=== PATIENT | male | born 1975 | race Hispanic/Latino ===

== ENCOUNTER 2024-07-18 17:53 | Emergency (ER) | payer BC ==
[~2024-07-18] VITALS: Ht 175.3 cm; Wt 94.3 kg
[~2024-07-18 17:53] MED LIST: LISINOPRIL10 MG PO
[2024-07-18 18:00] VITALS: PULSE 72; RESP 16; TEMP 97.9; O2SAT 99
[2024-07-18] MEDS: HYDROCODONE/APAP 5MG-325MG TAB PO ONE (18:50)
[2024-07-18] MEDS: TETANUS/DIPHTHERIA TOX ADULT 0.5 ML SYR IM ONE (18:50)
[2024-07-18] MEDS: AMOXICILLIN/CLAVULANATE K 875 MG TAB PO STA (20:13)
[2024-07-18] MEDS ORDERED: AMOX TR-K CLV1 EAC2 PO (21:14)
[2024-07-18] MEDS ORDERED: HYDROCODON-ACE1 EA11 PO (21:14)
[2024-07-20] MEDS ORDERED: CRANBERRY200 MG PO (10:18)
[2024-07-20] MEDS ORDERED: VITAMIN D31250 MCG PO (10:18)
[2024-07-20] MEDS ORDERED: FISH OIL 1,001000 M1 PO (10:18)
[2024-07-20] MEDS ORDERED: ASPIRIN81 MG PO (10:18)
[2024-07-21] MEDS ORDERED: HYDROCODON-ACE1 EA11 PO (09:47)
== END 2024-07-18 21:32 | disposition home or self-care (01) ==
LOC: ER 17:57
DX: S68.121A Partial traumatic metacarpophalangeal amputation of left index finger, initial encounter (principal); W54.0XXA Bitten by dog, initial encounter; Y92.89 Other specified places as the place of occurrence of the external cause; I10 Essential (primary) hypertension
CPT/HCPCS: 90714; 99284

== ENCOUNTER → 2024-07-21 | Day surgery (SDC) | payer BC ==
[~2024-07-21] MED LIST changes: +ACETAMINOPHEN 1000 MG/100 ML 100 ML IV ONE; +AMOX TR-K CLV1 EAC2 PO; +ASPIRIN81 MG PO; +BUPIVACAINE 0.5%/EPI 30 ML SDV INJ ONE; +BUPIVACAINE HCL 0.5% INJ 30 ML VIAL INJ ONE; +CRANBERRY200 MG PO; +DEXAMETHASONE SOD PHOS INJ 4 MG/ML SDV ONE; +FENTANYL CITRATE/PF 100MCG/2 ML INJ ONE; +FISH OIL 1,001000 M1 PO; +HYDROCODON-ACE1 EA11 PO; +HYOSCYAMINE SULFATE 0.5 MG/ML INJ ONE; +LACTATED RINGER'S 1,000 ML ONE; +LIDOCAINE 2% /EPINEPHRINE 20 ML SDV INJ ONE; +MIDAZOLAM HCL 2 MG/2 ML VIAL ONE; +MUPIROCIN 2% OINT 22 GM TUBE ONE; +ONDANSETRON HCL INJ 2MG/ML 2ML 2 MG/ML VIAL ONE; +PHENYLEPHRINE HCL 1% 10 MG/ML VIAL ONE; +PROPOFOL IV EMULSION 10 MG/ML 20 ML VIAL ONE; +SEVOFLURANE INHAL SOLN 250 ML PEN BTL ONE; +SODIUM CHLORIDE 0.9% 100 ML ONE; +VITAMIN D31250 MCG PO
== END | disposition home or self-care (01) ==
LOC: OR 06:03
PROVIDERS: ATTEND Plastic Surgery
DX: S68.611A Complete traumatic transphalangeal amputation of left index finger, initial encounter (principal); I10 Essential (primary) hypertension; W54.0XXA Bitten by dog, initial encounter; Z01.810 Encounter for preprocedural cardiovascular examination; Z79.82 Long term (current) use of aspirin; Z79.899 Other long term (current) drug therapy
CPT/HCPCS: 93005; J0690; J1100; J1980; J2004; J2250; J2371; J2405; J7050